=== PATIENT | male | born 1985 | race Hispanic/Latino ===

== ENCOUNTER 2021-09-27 12:55 | Emergency (ER) | payer OTHER, SELFPAY ==
[2021-09-27] VITALS (16 sets, daily range): BP systolic 120–152; BP diastolic 70–90; PULSE 66–100; RESP 13–22; TEMP 36.8; O2SAT 96–100; BMI 31.3
--- NOTE | 2021-09-27 13:12 | DI.RAD.S_ITS ---
PROCEDURE: XR SHOULDER LT MIN 2V INDICATIONS: Poss dislocation TECHNIQUE: 2 views of the shoulder were acquired. COMPARISON: None. FINDINGS: Bones: There is anterior-inferior dislocation at glenohumeral joint. No gross acute fracture is identified. No other dislocation is seen. No suspicious bony lesions. Visualized ribs appear intact. Soft tissues: No suspicious soft tissue calcifications. IMPRESSION: Anterior-inferior dislocation at acromioclavicular joint. No gross acute fracture is noted. Dictated by: Javier Pendleton M.D. on 09/27/2021 at 13:28 Approved by: Javier Pendleton M.D. on 09/27/2021 at 13:28
[2021-09-27] MEDS: HYDROMORPHONE 1 MG INJ IV (13:32)
[2021-09-27] MEDS: propofoL 200 MG/20 ML VIAL 170 MG IV (13:53)
--- NOTE | 2021-09-27 13:58 | ED_ITS ---
HPI - Extremity Injury (Upper) General Chief Complaint: Extremity Injury, Upper Stated Complaint: Fell and Dislocated Shoulder Time Seen by Provider: 09/27/21 12:59 Source: patient Mode of arrival: EMS Limitations: no limitations History of Present Illness HPI narrative: The patient works for [employer]. 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 He slipped. He grabbed the rope along the steps with his left hand. He dislocated his left shoulder with the ankle in the rope. The event happened about 2 hours ago. He arrives with dislocation left shoulder, no numbness or weakness in the left hand. He has no other injuries. He is right-hand dominant. He reports he has had multiple prior dislocations. He denies recent illness, there were no other injuries. Related Data Allergies Allergy/AdvReac Type Severity Reaction Status Date / Time No Known Drug Allergies Allergy Verified 09/27/21 13:07 Review of Systems Constitutional Constitutional: Denies weakness Comments: No recent illness. Left shoulder injury, no other injuries. Musculoskeletal Musculoskeletal: Denies numbness Comments: No back pain. Integumentary/Breasts Skin/Breast: Denies lesions and Denies rash Neurologic Neurologic: Denies confusion, Denies numbness and Denies weakness Psychiatric Psychiatric: Denies anxiety and Denies confusion Hematologic/Lymphatic On Anticoagulants: No Patient History Medical History (Updated 09/27/21 @ 15:12 by Jaren Ceron MD) Recurrent dislocation, left shoulder Social History Smoking Status: Never smoker Smoking Status: Never smoker alcohol intake frequency: holidays/special occasions only Substance Use Type: does not use Exam Initial Vital Signs Initial Vital Signs: Vital Signs Temperature 98.2 F 09/27/21 13:07 Pulse Rate 100 H 09/27/21 13:07 Respiratory Rate 22 09/27/21 13:07 Blood Pressure 142/90 H 09/27/21 13:07 Pulse Oximetry 96 09/27/21 13:07 Const General: cooperative and healthy appearing [facility] Head: normocephalic and atraumatic Mouth: oral mucosae normal Teeth and gingiva: dentition normal Throat: posterior oropharynx normal Neck Neck: supple and No tender Resp Auscultation: clear to auscultation bilaterally Cardio Rate: regular rate Rhythm: regular rhythm Heart Sounds: S1 normal, S2 normal and no murmurs Skin General: no rashes or lesions noted Neuro General: patient alert, patient awake and no focal motor deficits Extrem Other: Palpable anterior dislocation to left humeral head. No skin breaks. Full range of motion of the left of own rest worse. Left radial pulse is normal. Left hand function is normal. Psych Appearance: well kempt Procedures Orthopedic Joint Reduction Joint #1: Time of procedure: 14:20 Time Out Performed: Yes Side: left Joint Reduction Location: shoulder Analgesia: procedural sedation Amount of anesthesic used (mL): 170 Shoulder Technique Used (if applicable): Kailyn Post-reduction neuro exam: intact Post-reduction vascular: intact Post Reduction X-Ray Obtained: Yes Post Reduction X-Ray Results: reduced Splint Applied: Yes Patient Tolerated Procedure: Well Procedural Sedation Time of procedure: 14:20 Consent signed: Yes Time out performed: Yes Indication: fracture/dislocation reduction ASA Class: I Mallampati Airway Classification: Class I Time of Last PO Intake: 08:00 Preparation: mowing machine operator applied, pulse oximeter, capnometry used, supplemental O2 applied, reversal agents at bedside and IV secured IV Propofol dose (mg): 170 ED Sedation Level: Moderate (Concious) Patient Tolerated Procedure: Well Complications: none Course Course Course Narrative: The patient was placed in a sling after reduction. His left hand is neurovascularly intact. He has gone to the standard recovery after receiving procedural sedation. He is cleared to be released. Orders Ordered: ED Orders 09/27/21 13:12 XR shoulder LT min 2V Stat 09/27/21 14:11 XR shoulder LT min 2V Stat Discontinued Medications Hydromorphone HCl (Hydromorphone 1 Mg Inj) 1 mg IV NOW ONE Stop: 09/27/21 13:20 Last Admin: 09/27/21 13:32 Dose: 1 mg Documented by: RADHA Ketorolac Tromethamine (Ketorolac 30 Mg/Ml Vial) 30 mg IV NOW ONE Stop: 09/27/21 14:38 Last Admin: 09/27/21 14:38 Dose: 30 mg Documented by: RADHA Propofol (Propofol 200 Mg/20 Ml Vial) 150 mg IV NOW ONE Stop: 09/27/21 13:40 Last Admin: 09/27/21 14:10 Dose: Not Given Documented by: RADHA Propofol (Propofol 200 Mg/20 Ml Vial) 170 mg IV NOW ONE Stop: 09/27/21 14:08 Last Admin: 09/27/21 13:53 Dose: 170 mg Documented by: RADHA Vital Signs Vital signs: Vital Signs - 8 hr 09/27/21 13:07 09/27/21 13:20 09/27/21 13:48 Temperature 98.2 F Pulse Rate 100 H 85 Pulse Rate [Left Radial] 74 Respiratory Rate 22 Blood Pressure 142/90 H 152/89 H Pulse Oximetry 96 100 09/27/21 13:50 09/27/21 13:55 09/27/21 14:00 Temperature Pulse Rate 92 H 75 90 Pulse Rate [Left Radial] Respiratory Rate 18 20 19 Blood Pressure 147/90 H 131/81 Pulse Oximetry 100 96 09/27/21 14:01 09/27/21 14:05 09/27/21 14:10 Temperature Pulse Rate 86 81 78 Pulse Rate [Left Radial] Respiratory Rate 16 22 13 Blood Pressure 133/83 129/82 131/88 Pulse Oximetry 98 96 98 09/27/21 14:15 09/27/21 14:20 09/27/21 14:25 Temperature Pulse Rate 77 83 74 Pulse Rate [Left Radial] Respiratory Rate 20 18 18 Blood Pressure 129/88 127/83 133/80 Pulse Oximetry 97 97 97 09/27/21 14:26 09/27/21 14:34 Temperature Pulse Rate 66 Pulse Rate [Left Radial] 74 Respiratory Rate 16 Blood Pressure 122/84 Pulse Oximetry 99 MDM - Extremity Injury (Upper) Imaging Data Left shoulder x-ray:: Radiologist's Impression: Anterior/inferior dislocation. No evidence of fracture. Left shoulder x-ray, Post reduction.: Radiologist's Impression: IMPRESSION:? Interval reduction of earlier noted glenohumeral joint dislocation with anatomic shoulder alignment.? Suggestion of Hill-Sachs fracture involving humeral head.? No new dislocation is seen..? Discharge Plan Departure Patient Disposition: Home Clinical Impression: Anterior shoulder dislocation Instructions: DI for Shoulder Dislocation Activity Restrictions/Additional Instructions: Keep the arm in a sling for a few soon days when up and about. Advil 3 tablets every 6 hours as needed for pain. Follow-up with your regular doctor, seek out orthopedic care in the area where you live. I have given you a copy of your x-rays. Return here as needed. Stand Alone Forms: Work Release Note
--- NOTE | 2021-09-27 13:59 | PC.NURSE ---
left shoulder reduced at 1354
--- NOTE | 2021-09-27 14:11 | DI.RAD.S_ITS ---
PROCEDURE: XR SHOULDER LT MIN 2V INDICATIONS: post reduction TECHNIQUE: 3 views of the shoulder were acquired. COMPARISON: [facility], CR, XR SHOULDER LT MIN 2V, 09/27/2021, 13:06. FINDINGS: Bones: Interval reduction of earlier noted anterior-inferior glenohumeral joint dislocation. Deformity involving posterior lateral humeral head is seen concerning for Hill-Sachs fracture. No glenoid fracture is identified. No suspicious bony lesions. Visualized ribs appear intact. Soft tissues: No suspicious soft tissue calcifications. IMPRESSION: Interval reduction of earlier noted glenohumeral joint dislocation with anatomic shoulder alignment. Suggestion of Hill-Sachs fracture involving humeral head. No new dislocation is seen.. Dictated by: Javier Pendleton M.D. on 09/27/2021 at 14:56 Approved by: Javier Pendleton M.D. on 09/27/2021 at 14:57
--- NOTE | 2021-09-27 14:22 | RT ---
Called to bedside for PRS for Dislocated shoulder, bag mask unit with suction on and functional at bedside. Pt placed on 2 lpm nc and etco2 @34. Pt christophe well, no distress noted and approx. 1 min jaw thrust applied. Pt more responsive and talking, released by Lenny Daigle and all rales up.Pt on room air
[2021-09-27] MEDS: KETOROLAC 30 MG/ML VIAL IV (14:38)
== END 2021-09-27 15:25 | disposition home or self-care (01) ==
PROVIDERS: Emergency Provider Emergency Medicine
DX: S43.015A Anterior dislocation of left humerus, initial encounter (principal); W10.9XXA Fall (on) (from) unspecified stairs and steps, initial encounter; Y92.814 Boat as the place of occurrence of the external cause; Y99.0 Civilian activity done for income or pay
CPT/HCPCS: 23650; 73030; 96374; 96375; 99152; 99284; 99291; J1170; J1885; J2704